=== PATIENT | male | born 1985 | race Caucasian/White ===

== ENCOUNTER 2017-04-21 08:48 | Emergency (ER) | payer SELFPAY ==
[~2017-04-21] VITALS: Ht 180.3 cm; Wt 68.0 kg
[~2017-04-21 08:48] MED LIST: AMO500 PO; NO CURRENT MEDS; TRAM-420 PO
[2017-04-21] MEDS ORDERED: IBUP400T13 PO (08:57)
[2017-04-21] MEDS ORDERED: BUPIVACAINE 0.5% INJ 50ML VIAL INFIL ONE (09:20)
[2017-04-21] MEDS ORDERED: TRIAMCINOLONE ACE 40 MG/ML VL IM ONE (09:20)
--- NOTE | 2017-04-21 09:30 | ER Report ---
History and Physical Time Seen By MD: 09:23 Hx. of Stated Complaint: pt presents with pain in l forearm. 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 Pain 2 severe to allow for work today. Over the past few days pain has been increasing over the course of the work day and limits director of learning towards the end of the day. REVIEW OF SYSTEMS: Respiratory: No cough, no dyspnea. Cardiovascular: No chest pain, no palpitations. Gastrointestinal: No vomiting, no abdominal pain. Musculoskeletal: No back pain. Allergies: Coded Allergies: No Known Drug Allergies (Verified , 04/21/17) Home Meds Reported Medications Ibuprofen (IBUPROFEN) 400 Mg Tablet, 1 TAB PO PRN, TAB 04/21/17 Discontinued Reported Medications [No Current Meds] No Conflict Check 05/16/11 Discontinued Scripts Tramadol Hcl (TRAMADOL HCL) 50 Mg Tablet, 50-100 MG PO Q6H, #20 TAB Prov:SHAUNA AUGUST NP 01/21/15 Hx Smoking: Yes Smoking Status: Current: Every Day Smoker Exposure to Second Hand Smoke?: Yes Hx Substance Use Disorder: Yes (MARIJUANA) Hx Alcohol Use: No Constitutional Vital Sign - Last 24 Hours 04/21/17 04/21/17 08:51 09:30 Temp 97.7 Pulse 61 Resp 20 B/P (MAP) 120/80 115/73 (87) Pulse Ox 97 O2 Delivery Room Air Physical Exam General Appearance: The patient is alert, has no immediate need for airway protection and no current signs of toxicity. No acute distress Eyes: Pupils equal and round no injection. Respiratory: Chest is non tender, lungs are clear to auscultation. Cardiac: regular rate and rhythm no murmurs gallops or rubs Gastrointestinal: Abdomen is soft and non tender, no masses, bowel sounds normal. Musculoskeletal: Neck: Neck is supple and non tender. Left wrist inflammation and tenderness overlying the extensor retinaculum at the extensor pollicis brevis and abductor pollicis longus.. Extremities otherwise have full range of motion and are non tender. No bony tenderness Skin: No rashes or lesions. No overlying skin changes DIFFERENTIAL DIAGNOSIS: After history and physical exam differential diagnosis was considered for tendinitis, de Quervain's tenosynovitis no signs of fracture or dislocation or other deformity. Medical Decision Making ED Course/Re-evaluation ED Course Risk benefits of tendon sheath injection with steroids discussed with the patient who opted to have procedure here and agrees to follow-up with orthopedics for further care. Dr. Rajput was page in consultation and to discuss the procedure and follow-up. Procedure Procedure: Kenalog bupivacaine injection 1 mL to 5 mL ratio Prep, chlorhexidine scrub extensive Technique: A 6 mL's was injected just above the extensor retinaculum along the extensor pollicis longus and extensor pollicis brevis tendons Complications: None Tolerated: Well Blood loss: None Postprocedure exam neurovascularly intact Decision to Disposition Date: Apr 21, 2017 Decision to Disposition Time: 10:16 Depart Departure Latest Vital Signs Vital Signs Date Time Temp Pulse Resp B/P (MAP) Pulse Ox O2 Delivery O2 Flow Rate FiO2 04/21/17 09:30 115/73 (87) 04/21/17 08:51 97.7 61 20 97 Room Air Impression: Primary Impression: Tendinitis of left wrist Condition: Improved Disposition: HOME OR SELF-CARE Referrals: THIERNO RAJPUT MD Patient Instructions: DeQuervain Release (DC) Additional Instructions: Follow up with your orthopedist to determine if further intervention is required {see discharge instructions} HELEN DELAROSA MD Apr 21, 2017 09:30
[2017-04-21 10:15] VITALS: BP 114/70
== END 2017-04-21 10:27 | disposition home or self-care (01) ==
LOC: ER 09:01
DX: M77.9 Enthesopathy, unspecified (principal)
CPT/HCPCS: 96372; 99282; J3301; J3490

== ENCOUNTER 2018-05-16 17:27 | Emergency (ER) | payer SELFPAY ==
[~2018-05-16 17:27] MED LIST changes: +IBUP400T13 PO
[2018-05-16 19:45] VITALS: BP 118/88
--- NOTE | 2018-05-16 19:51 | ER Report ---
History and Physical Time Seen By MD: 19:51 Hx. of Stated Complaint: cut middle left finger on a utility blade HPI/ROS CHIEF COMPLAINT: Laceration HISTORY OF PRESENT ILLNESS: This is a 32-year-old male who presents to the emergency department for laceration. Patient states that approximately 3 hours prior to arrival, he was using a sharp box knife, the knife slipped and he lacerated the medial side of his left middle finger just proximal to the DIP joint. Bleeding is controlled. Flexion and extension intact. CMS intact distal to the injury. Tetanus up-to-date. No other concerning findings. Patient is otherwise healthy. No fevers or chills. No chest pain or shortness of breath. Allergies: Coded Allergies: No Known Drug Allergies (Verified , 05/16/18) Home Meds Reported Medications Ibuprofen (IBUPROFEN) 400 Mg Tablet, 1 TAB PO PRN, TAB 04/21/17 Past Medical/Surgical History The patient has a past medical and surgical history of marijuana use, no other significant medical history. Reviewed Nurses Notes: Yes Hx Smoking: Yes Smoking Status: Current: Every Day Smoker Exposure to Second Hand Smoke?: Yes Hx Substance Use Disorder: Yes (MARIJUANA) Hx Alcohol Use: No Constitutional Vital Sign - Last 24 Hours 05/16/18 19:45 Temp 97.9 Pulse 70 Resp 12 B/P (MAP) 118/88 Pulse Ox 94 O2 Delivery Room Air Physical Exam General appearance: Alert no distress. Respiratory: Chest is non tender, lungs are clear to auscultation. Cardiac: Regular rate and rhythm. Integumentary: Superficial 2 cm laceration to the left middle finger between the DIP and PIP joints. Bleeding controlled. Flexion and extension intact. CMS intact distal to the injury. DIFFERENTIAL DIAGNOSIS: After history and physical exam differential diagnosis was considered for laceration. Medical Decision Making ED Course/Re-evaluation ED Course The patient was admitted to room. A history of physical were obtained. Diffe rential diagnoses were considered. After thoroughly cleansing the patient's wound, it does appear that he laceration has superficial, sutures are not warranted at this time, I explained this to the patient, the patient's wound was Dermabonded. I did tell him that antibiotics are not warranted with this injury. The patient had no other questions or concerns at this time and was discharged home. He did instruct him to keep it covered while working. Patient exposed understanding. Procedure: Laceration repair. Verbal consent was obtained from the patient. The superficial 2 centimeter laceration on the medial aspect of the left middle finger between the DIP and PIP. The wound was scrubbed, draped and explored to its base with a gloved finger. There were no deep structures involved. No tendon injury was identified. The wound was repaired with Dermabond. The wound repair was simple . The procedure was performed by myself. Decision to Disposition Date: May 16, 2018 Decision to Disposition Time: 20:46 Depart Departure Latest Vital Signs Vital Signs Date Time Temp Pulse Resp B/P (MAP) Pulse Ox O2 Delivery O2 Flow Rate FiO2 05/16/18 19:45 97.9 70 12 118/88 94 Room Air Impression: Primary Impression: Finger laceration Condition: Improved Disposition: HOME OR SELF-CARE Patient Instructions: Acute Wound Care (ED), Finger Laceration (ED) Additional Instructions: Keep wound dry for 48 hours. Monitor for signs of infection; redness, swelling, heat, discharge, increasing pain or red streaking. Take Tylenol or Ibuprofen as needed for pain. Return to the ER with any concerns. You may change dressing as needed. The Dermabond will come off on its own, do not apply antibiotic ointment to the glue as it will dissolve the glue. Keep the wound covered with a bandage. Problem Qualifiers Primary Impression: Finger laceration Encounter type: initial encounter Finger: middle finger Damage to nail status: without damage Foreign body presence: without foreign body Laterality: left Qualified Codes: S61.213A - Laceration without foreign body of left middle finger without damage to nail, initial encounter CARLY GONZALES-ANAYELI May 16, 2018 19:51
[2018-05-16] MEDS ORDERED: OCTYL CYANOACRYLATE 1 APP APPL TP ONE (20:25)
== END 2018-05-16 20:46 | disposition home or self-care (01) ==
LOC: ER 19:21
DX: S61.213A Laceration without foreign body of left middle finger without damage to nail, initial encounter (principal); W26.0XXA Contact with knife, initial encounter
CPT/HCPCS: 99283